=== PATIENT | female | born 1960 | race Caucasian/White ===

== ENCOUNTER 2023-09-24 12:37 | Emergency (ER) | payer OTHER ==
[~2023-09-24] VITALS: Ht 162.6 cm; Wt 88.0 kg
[2023-09-24 13:00] VITALS: BP 168/88; PULSE 64; RESP 16; TEMP 97.1; O2SAT 96
[2023-09-24] MEDS ORDERED: BENZ100C6 PO (13:42)
[2023-09-24] MEDS ORDERED: AMOX-1230 PO (13:42)
[2023-09-24 14:04] VITALS: BP 162/90; PULSE 63; RESP 20; O2SAT 98
[2023-09-24 14:11] LABS: FLU A ANTIGEN negative (NEGATIVE); FLU B ANTIGEN negative (NEGATIVE)
== END 2023-09-24 13:55 | disposition home or self-care (01) ==
LOC: MED 12:37
DX: J18.9 Pneumonia, unspecified organism (principal); Z20.822 Contact with and (suspected) exposure to COVID-19; I10 Essential (primary) hypertension; E78.5 Hyperlipidemia, unspecified; Z79.899 Other long term (current) drug therapy
CPT/HCPCS: 71045; 99284